=== PATIENT | female | born 1955 | race Caucasian/White ===

== ENCOUNTER 2017-01-22 12:08 | Emergency (ER) | payer OTHER ==
[~2017-01-22] VITALS: Ht 167.6 cm; Wt 76.4 kg
[2017-01-22 16:05] LABS: CHLORIDE 107 mEq/L (99-109); POTASSIUM 4.3 mEq/L (3.7-5.4); SODIUM 141 mEq/L (136-147)
[2017-01-22 16:06] LABS: GLUCOSE 95 mg/dL (70-99)
[2017-01-22 16:08] LABS: ANION GAP 11 MEQ/L (2-14)
[2017-01-22 16:10] LABS: GFR ESTIMATE (CALCULATED) > 59 mL/min/
[2017-01-22 16:11] LABS: UREA NITROGEN (BUN) 13 mg/dL (9-23)
[2017-01-22 16:13] LABS: MCH 30.1 PG (29.0-34.0); MCHC 33.9 G/DL (30.0-36.0); MCV 88.7 FL (83-99); PLATELET COUNT 233 K/uL (156-360); RBC DIS.WIDTH-CV 12.8 % (11.8-14.6); RBC DIS.WIDTH-SD 41.3 % (39-53); RED BLOOD COUNT 4.62 M/uL (3.80-5.20); WHITE BLOOD COUNT 5.9 K/uL (4.1-10.2)
[2017-01-22 16:47] VITALS: BP 105/87
== END 2017-01-22 17:04 | disposition left against medical advice (07) ==
LOC: EME 12:08
PROVIDERS: Physician Assistant
DX: R42 Dizziness and giddiness (principal); R51 Headache
CPT/HCPCS: 70450; 80048; 85027; 93005; 99281; 99284